=== PATIENT | female | born 1995 | race Caucasian/White ===

== ENCOUNTER 2016-07-13 22:21 | Emergency (ER) | payer OTHER ==
[~2016-07-13] VITALS: Ht 160 cm; Wt 51.3 kg
[2016-07-13 23:03] LABS: KETONES,URINE NEGATIVE (NEGATIVE); LEUKOCYTE ESTERASE ,URINE NEGATIVE (NEGATIVE); PH,URINE 6.5 (5.0-8.0)
[2016-07-13 23:04] LABS: PREGNANCY TEST URINE QUAL NEGATIVE (NEGATIVE)
[2016-07-13 23:07] LABS: ADD UA MICROSCOPIC YES
[2016-07-13 23:14] LABS: ADD URINE CULTURE YES; MUCUS,URINE Rare /LPF (None Seen); RBC,URINE 0-2 /HPF (0-2); WBC,URINE 0-3 /HPF (0-3)
[2016-07-13 23:52] VITALS: BP 124/70
== END 2016-07-13 23:30 | disposition home or self-care (01) ==
LOC: ER 22:21
DX: N39.0 Urinary tract infection, site not specified (principal); R00.2 Palpitations; R00.0 Tachycardia, unspecified
CPT/HCPCS: 81001; 82962; 84703; 87086; 87491; 87591; 99284; A4606; Z7610; 81000-TC

== ENCOUNTER 2016-07-18 01:35 | Emergency (ER) | payer OTHER ==
[~2016-07-18] VITALS: Ht 162.6 cm; Wt 49.9 kg
--- NOTE | 2016-07-18 01:55 | NUR ---
BB ; NAUSEA/ VOMIT X 2 HOURS. PT AOX3 RR EVEN AND UNLABORED. NO SOB NOTED. NAD NOTED. NO NVD AT THIS TIME. PT NOT DIAPHORETIC. PT GOWNED AND PLACED ON MONITOR WAITING FOR MD AGUERO. PT NOTED ANXIOUS.
[2016-07-18] MEDS ORDERED: ONDANSETRON HCL/PF 4 MG/2 ML VIAL ONE (02:19)
[2016-07-18] MEDS ORDERED: IV NS 0.9% 1,000 ML ONE (02:19)
[2016-07-18] MEDS ORDERED: IV SET PRIMARY 1 EA INFUS.SET MC ONE (02:19)
[2016-07-18] MEDS ORDERED: LORAZEPAM INJ 2 MG/ML VIAL ONE (02:20)
[2016-07-18 02:28] LABS: BASOPHILS % (AUTO) 0.2 % (0.0-2.0); EOSINOPHILS # (AUTO) 0.1 /CMM (0.0-0.7); EOSINOPHILS % (AUTO) 0.5 % (0.0-6.0); HEMATOCRIT 41 % (33-45); HEMOGLOBIN 13.6 g/dL (11.5-14.8); LYMPHOCYTES # (AUTO) 2.6 /CMM (0.8-4.8); LYMPHOCYTES % (AUTO) 13.7 % (20.0-44.0); MEAN CORPUSCULAR HEMOGLOBIN 30 PG (26.0-33.0); MEAN CORPUSCULAR HGB CONC 33 g/dl (31.0-36.0); MEAN CORPUSCULAR VOLUME 90 fL (82-100); MONOCYTES # (AUTO) 0.9 /CMM (0.1-1.30); MONOCYTES % (AUTO) 4.7 % (2.0-12.0); NEUTROPHILS # (AUTO) 15.2 /CMM (1.8-8.9); NEUTROPHILS % (AUTO) 80.9 % (43.0-81.0); PLATELET COUNT (AUTO) 280 /CMM (150-450); RDW COEFFICIENT OF VARIATION 12.4 (11.5-15.0); RED BLOOD CELL COUNT(AUTO) 4.53 MIL/uL (4.0-5.2); WHITE BLOOD COUNT (AUTO) 18.8 K/uL (4.3-11.0)
[2016-07-18] MEDS ORDERED: ONDANSETRON HCL/PF 4 MG/2 ML VIAL IVP ONE (02:30)
[2016-07-18] MEDS ORDERED: IV NS 0.9% 1,000 ML BAG IV ONE (02:30)
[2016-07-18] MEDS ORDERED: LORAZEPAM INJ 2 MG/ML VIAL IV ONE (02:30)
[2016-07-18 02:33] LABS: CREATININE 0.7 mg/dL (0.6-1.3); POTASSIUM 3.7 mmol/L (3.5-5.1)
[2016-07-18 02:39] LABS: BILIRUBIN,DIRECT 0.1 mg/dL (0.0-0.2); BILIRUBIN,TOTAL 0.3 mg/dL (0.2-1.0); TOTAL PROTEIN, SERUM 7.6 g/dL (6.4-8.2)
--- NOTE | 2016-07-18 02:47 | NUR ---
URINE COLLECTED. CALL LAB FOR PROCESS IMPROVEMENT SPECIALIST.
--- NOTE | 2016-07-18 02:55 | NUR ---
PT NOTED RELAXED AND SLEEPING,EASILY AROUSED. VSS.
[2016-07-18 03:18] LABS: APPEARANCE,URINE CLEAR (CLEAR); BILIRUBIN,URINE NEGATIVE (NEGATIVE); BLOOD, URINE 1+ Ery/uL (NEGATIVE); COLOR,URINE YELLOW (YELLOW); KETONES,URINE NEGATIVE (NEGATIVE); LEUKOCYTE ESTERASE ,URINE NEGATIVE (NEGATIVE); NITRITE, URINE NEGATIVE (NEGATIVE); PH,URINE 5.5 (5.0-8.0); PREGNANCY TEST URINE QUAL NEGATIVE (NEGATIVE); PROTEIN,URINE NEGATIVE (NEGATIVE); UGLUCOSE NEGATIVE (NEGATIVE); UROBILINOGEN,URINE 0.2 EU/dL (0.2)
[2016-07-18 03:29] LABS: ADD URINE CULTURE NO; BACTERIA,URINE None seen /HPF (None Seen); SQUAMOUS EPITHELIAL CELL,UR Few /HPF (None Seen); WBC,URINE 0-2 /HPF (0-3)
--- NOTE | 2016-07-18 03:32 | NUR ---
PT TO CT.
--- NOTE | 2016-07-18 03:57 | NUR ---
PT RETURNED FROM CT.
--- NOTE | 2016-07-18 04:28 | NUR ---
IV removed. Catheter intact and site benign. Pressure and 4x4 applied to site. No bleeding noted. Patient discharged to home in stable condition. Written and verbal after care instructions given. Patient verbalizes understanding of instruction. ambulatory with a steady gait. pt instructed not to drive. pt verbalize understanding. pt with boyfriend.
[2016-07-18 04:33] VITALS: BP 108/56
== END 2016-07-18 04:35 | disposition home or self-care (01) ==
LOC: ER 01:40
DX: R10.9 Unspecified abdominal pain (principal); R41.9 Unspecified symptoms and signs involving cognitive functions and awareness; R11.2 Nausea with vomiting, unspecified
CPT/HCPCS: 36415; 80048-TC; 80076-TC; 81000-TC; 83690-TC; 84703-TC; 85025-TC; A4606; J2060; J2405; J7030; Z7610

== ENCOUNTER 2017-03-05 23:39 | Emergency (ER) | payer OTHER ==
[~2017-03-05] VITALS: Ht 160 cm; Wt 47.6 kg
--- NOTE | 2017-03-06 00:09 | NUR ---
PT AMBULATORY TO ER BED 7, C/O LEFT SIDE ABD PAIN X 1 WEEK. PT PLACED IN GOWN AND VS MACHINE. VSS/RESP EVEN UNLABORED/NAD NOTED/SKIN WARM AND DRY/ DENIES N/V/D. PT IS AOX4. AWAITING MD AGUERO.
--- NOTE | 2017-03-06 00:29 | NUR ---
LAB AT BEDSIDE PER MD ORDERS,
[2017-03-06 00:37] LABS: APPEARANCE,URINE CLEAR (CLEAR); BILIRUBIN,URINE NEGATIVE (NEGATIVE); BLOOD, URINE TRACE-INTA Ery/uL (NEGATIVE); COLOR,URINE YELLOW (YELLOW); KETONES,URINE NEGATIVE (NEGATIVE); LEUKOCYTE ESTERASE ,URINE NEGATIVE (NEGATIVE); NITRITE, URINE NEGATIVE (NEGATIVE); PROTEIN,URINE NEGATIVE (NEGATIVE); UGLUCOSE NEGATIVE (NEGATIVE); UROBILINOGEN,URINE 0.2 EU/dL (0.2)
[2017-03-06 00:44] LABS: BACTERIA,URINE None seen /HPF (None Seen); RBC,URINE 0-2 /HPF (0-2); SQUAMOUS EPITHELIAL CELL,UR Few /HPF (None Seen); WBC,URINE 0-2 /HPF (0-3)
[2017-03-06 00:44] LABS: BASOPHILS % (AUTO) 0.4 % (0.0-2.0); EOSINOPHILS # (AUTO) 0.1 /CMM (0.0-0.7); EOSINOPHILS % (AUTO) 1.7 % (0.0-6.0); HEMATOCRIT 37 % (33-45); HEMOGLOBIN 12.5 g/dL (11.5-14.8); LYMPHOCYTES # (AUTO) 3.5 /CMM (0.8-4.8); LYMPHOCYTES % (AUTO) 46.8 % (20.0-44.0); MEAN CORPUSCULAR HEMOGLOBIN 30 PG (26.0-33.0); MEAN CORPUSCULAR HGB CONC 34 g/dl (31.0-36.0); MEAN CORPUSCULAR VOLUME 89 fL (82-100); MONOCYTES # (AUTO) 0.4 /CMM (0.1-1.30); MONOCYTES % (AUTO) 4.8 % (2.0-12.0); NEUTROPHILS # (AUTO) 3.5 /CMM (1.8-8.9); NEUTROPHILS % (AUTO) 46.3 % (43.0-81.0); PLATELET COUNT (AUTO) 251 /CMM (150-450); WHITE BLOOD COUNT (AUTO) 7.6 K/uL (4.3-11.0)
[2017-03-06 00:49] LABS: CALCIUM, SERUM 8.8 mg/dL (8.5-10.1); CREATININE 0.7 mg/dL (0.6-1.3); POTASSIUM 3.8 mmol/L (3.5-5.1)
[2017-03-06 00:54] LABS: INR 0.99 (0.87-1.13); PROTHROMBIN TIME 10.3 SECS (9.5-12.7)
[2017-03-06 00:57] LABS: ALBUMIN 3.6 g/dL (3.4-5.0); BILIRUBIN,DIRECT 0.1 mg/dL (0.0-0.2); BILIRUBIN,TOTAL 0.3 mg/dL (0.2-1.0); TOTAL PROTEIN, SERUM 7.2 g/dL (6.4-8.2)
--- NOTE | 2017-03-06 00:57 | NUR ---
PT TO CT VIA STRETCHER, VSS.
[2017-03-06] MEDS ORDERED: FAMOTIDINE (20 MG) 20 MG TABLET ONE (01:07)
--- NOTE | 2017-03-06 01:09 | NUR ---
PT BACK FROM CT
--- NOTE | 2017-03-06 01:11 | NUR ---
Artur pederson in ED - 03/06/17 at 0113 by MAGUE Patient discharged to home in stable condition. Written and verbal after care instructions given. Patient verbalizes understanding of instruction. Pt ambulatory with a steady gait.
--- NOTE | 2017-03-06 01:13 | NUR ---
TIME CHANGE DUE TO DLS. Patient discharged to home in stable condition. Written and verbal after care instructions given. Patient verbalizes understanding of instruction. Pt ambulatory with a steady gait.
[2017-03-06 01:17] VITALS: BP 118/71
[2017-03-06] MEDS ORDERED: FAMOTIDINE (20 MG) 20 MG TABLET PO ONE (01:30)
--- NOTE | 2017-03-06 01:54 | NUR ---
DR. RUTLEDGE AT BEDSIDE SPEAKING TO PT REGARDING RESULTS.
== END 2017-03-06 01:16 | disposition home or self-care (01) ==
LOC: ER 23:40
DX: R10.12 Left upper quadrant pain (principal)
CPT/HCPCS: 36415; 74176; 80048; 80076; 81001; 83690; 84703; 85025; 85730; 99285; A4606; Z7610; 81000-TC

== ENCOUNTER 2019-05-17 23:59 | Emergency (ER) | payer BC, OTHER ==
[~2019-05-17] VITALS: Ht 165.1 cm; Wt 48.1 kg
[2019-05-18] MEDS ORDERED: ONDANSETRON HCL/PF 4 MG/2 ML VIAL ONE ×2 (00:16→01:30)
--- NOTE | 2019-05-18 00:18 | NUR ---
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 PT STATED THAT IT STARTED TODAY. PT VOMITTED X1 IN ER 1 WHEN TRANSFERRING FROM TO [facility]. 20G IV STARTED IN [facility]. BLOOD WAS DRAWN AND SENT TO LAB.
[2019-05-18] MEDS ORDERED: DICYCLOMINE HCL INJ 20 MG/2 ML AMPUL IM ONE ×2 (00:22→00:30)
[2019-05-18 00:28] LABS: BASOPHILS # (AUTO) 0.1 /CMM (0.0-0.2); BASOPHILS % (AUTO) 0.4 % (0.0-2.0); EOSINOPHILS % (AUTO) 0.9 % (0.0-6.0); HEMATOCRIT 43 % (33-45); HEMOGLOBIN 14.1 g/dL (11.5-14.8); LYMPHOCYTES # (AUTO) 2.3 /CMM (0.8-4.8); LYMPHOCYTES % (AUTO) 11.1 % (20.0-44.0); MEAN CORPUSCULAR HGB CONC 33 g/dl (31.0-36.0); MEAN CORPUSCULAR VOLUME 94 fL (82-100); MONOCYTES # (AUTO) 1.2 /CMM (0.1-1.30); MONOCYTES % (AUTO) 5.8 % (2.0-12.0); NEUTROPHILS # (AUTO) 17.1 /CMM (1.8-8.9); NEUTROPHILS % (AUTO) 81.8 % (43.0-81.0); PLATELET COUNT (AUTO) 323 /CMM (150-450); WHITE BLOOD COUNT (AUTO) 20.9 K/uL (4.3-11.0)
[2019-05-18] MEDS ORDERED: IV NS 0.9% 1,000 ML BAG IV ONE (00:30)
[2019-05-18] MEDS ORDERED: ONDANSETRON HCL/PF 4 MG/2 ML VIAL IVP ONE (00:30)
[2019-05-18 00:42] LABS: CALCIUM, SERUM 8.8 mg/dL (8.5-10.1); CREATININE 0.6 mg/dL (0.6-1.3); POTASSIUM 3.6 mmol/L (3.5-5.1)
[2019-05-18 00:48] LABS: ALBUMIN 4.2 g/dL (3.4-5.0); BILIRUBIN,DIRECT 0.1 mg/dL (0.0-0.2); BILIRUBIN,TOTAL 0.4 mg/dL (0.2-1.0); TOTAL PROTEIN, SERUM 7.8 g/dL (6.4-8.2)
--- NOTE | 2019-05-18 01:10 | NUR ---
Artur pederson in [facility] - 05/18/19 at [email or web address] BAIRES IS AT THE BEDSIDE.
--- NOTE | 2019-05-18 01:16 | NUR ---
Artur pederson in [facility] - 05/18/19 at 0116 by [email or web address] PT REC'D MEDICATION ORDERED.
--- NOTE | 2019-05-18 01:16 | NUR ---
PT APPEARS TO BE RESTING COMFORTABLY WITH NO S/S OF PAIN OR DISTRESS.
[2019-05-18] MEDS ORDERED: ONDANSETRON HCL/PF 4 MG/2 ML VIAL IV ONE (01:30)
--- NOTE | 2019-05-18 01:38 | NUR ---
PT IS IN THE BATHROOM.
--- NOTE | 2019-05-18 01:39 | NUR ---
PT RETURNED TO ER 2. PT AMBULATED WITH A STEADY GAIT.
[2019-05-18 02:01] LABS: APPEARANCE,URINE Clear (CLEAR); BILIRUBIN,URINE Negative (NEGATIVE); BLOOD, URINE Small Ery/uL (NEGATIVE); COLOR,URINE Yellow (YELLOW); KETONES,URINE Negative (NEGATIVE); LEUKOCYTE ESTERASE ,URINE Negative (NEGATIVE); NITRITE, URINE Negative (NEGATIVE); PROTEIN,URINE Negative (NEGATIVE); UGLUCOSE Negative (NEGATIVE); UROBILINOGEN,URINE 0.2 EU/dL (0.2)
--- NOTE | 2019-05-18 02:06 | NUR ---
PT LEFT FOR CT VIA RNEY
[2019-05-18 02:15] LABS: BACTERIA,URINE Few /HPF (None Seen); SQUAMOUS EPITHELIAL CELL,UR Few /HPF (None Seen); WBC,URINE 0-2 /HPF (0-3)
--- NOTE | 2019-05-18 02:58 | NUR ---
CALLED [facility]LINE RE: CT READ.
--- NOTE | 2019-05-18 03:17 | NUR ---
IV removed. Catheter intact and site benign. Pressure and 4x4 applied to site. No bleeding noted. Patient discharged to home in stable condition. Written and verbal after care instructions given. Patient verbalizes understanding of instruction AND RX. PT'S BOYFRIEND IS TAKING PT HOME. VSS.
[2019-05-18 03:21] VITALS: BP 95/60
== END 2019-05-18 03:22 | disposition home or self-care (01) ==
LOC: ER 05-18
DX: K52.9 Noninfective gastroenteritis and colitis, unspecified (principal); Z87.440 Personal history of urinary (tract) infections
CPT/HCPCS: 36415; 74176; 80048; 80076; 81001; 83690; 84703; 85025; 87804 ×2; 96361; 96372; 96374; 96376; 99284; J0500; J2405 ×2; J7030; 81000-TC